=== PATIENT | female | born 1970 | race Caucasian/White ===

== ENCOUNTER 2017-08-12 16:59 | Emergency (ER) | payer MEDICAID, OTHER ==
[~2017-08-12 16:59] MED LIST: CALC500T42 PO; FISHCAP PO; GARL500T PO; LISI-363 PO; LORTA5 PO; MAGN500T4 PO; TAB-TAB PO; VITA100017 PO; Z.0.BCPILL PO; ZINC30TA2 PO
[2017-08-12 17:04] VITALS: BP 151/87; PULSE 91; RESP 18; TEMP 98.7; O2SAT 98
[2017-08-12] MEDS ORDERED: LISI40TA PO (17:20)
[2017-08-12] MEDS ORDERED: PRED10PA PO (17:20)
[2017-08-12] MEDS ORDERED: ZITH250T PO (17:20)
--- NOTE | 2017-08-12 17:36 | PD ---
HPI Chief Complaint: Skin Problem Time Seen by Provider: 17:22 Travel History International Travel<30 days: No Contact w/Intl Traveler<30days: No Traveled to known affect area: No History of Present Illness HPI The patient was seen and examined in the presence of the nurse. Patient complains of right arm redness and swelling and pain. Duration is 4 days. Severity is moderate. No alleviating factors. No exacerbating factors. She denies fever. No history of DVT. She recently completed a Z-Lexx for pharyngitis. She has no history of IV drug abuse. No other areas of swelling or redness. PFSH Past Medical History Cancer: No Cardiovascular Problems: Yes (PALPITATIONS) Diminished Hearing: No Endocrine: No Genitourinary: No Hepatitis: No Hiatal Hernia: No Hypertension: Yes Immune Disorder: No Neurologic: No Psychiatric: Yes (ANXIETY) Immunizations Current: No (UNKN) Tetanus Vaccination: > 5 Years Influenza Vaccination: No ?: Not Menopausal: No : 2 Para: 2 Past Surgical History Abdominal Surgery: No Body Medical Devices: BREAST IMPLANTS Section: Yes (X2) Ear Surgery: No Endocrine Surgery: No Eye Surgery: No Genitourinary Surgery: No Gynecologic Surgery: Yes (2 C SECTIONS) Hysterectomy: Yes Oral Surgery: No Thoracic Surgery: Yes (BREAST IMPLANTS) Other Surgery: Yes Social History Alcohol Use: Yes (3-4/WEEK) Tobacco Use: Yes (3-4 cigs per day) Substance Use: No Allergies-Medications (Allergen,Severity, Reaction): Coded Allergies: No Known Allergies (Verified , 06/10/15) Reported Meds & Prescriptions Reported Meds & Active Scripts Active Reported Prednisone (21) 10 mg tab Dose Pack (Prednisone) 10 Mg Pack 10 Mg PO DIRECTED Zithromax (Azithromycin) 250 Mg Tab 250 Mg PO DAILY Lisinopril 40 Mg Tab 40 Mg PO DAILY Review of Systems General / Constitutional: No: Fever Eyes: No: Visual changes HENT: No: Headaches Cardiovascular: No: Chest Pain or Discomfort Respiratory: No: Shortness of Breath Gastrointestinal: No: Abdominal Pain Genitourinary: No: Dysuria Musculoskeletal: Positive: Edema, Pain Skin: No Rash Neurologic: No: Weakness Psychiatric: No: Depression Endocrine: No: Polydipsia Hematologic/Lymphatic: No: Easy Bruising Physical Exam Narrative GENERAL: Well-nourished, well-developed patient in no apparent distress. SKIN: Focused skin assessment reveals no rash and nodules. Skin is Warm and dry. HEAD: Atraumatic. Normocephalic. EYES: Pupils equal and round. No scleral icterus. No injection or drainage. ENT: No nasal bleeding or discharge. Mucous membranes pink and moist. Throat looks normal NECK: Trachea midline. No JVD. Palpable cervical lymph node on the right. CARDIOVASCULAR: Regular rate and rhythm. No murmur appreciated. RESPIRATORY: No accessory muscle use. Clear to auscultation. Breath sounds equal bilaterally. GASTROINTESTINAL: Abdomen soft, non-tender, nondistended. Hepatic and splenic margins not palpable. MUSCULOSKELETAL: No obvious deformities. No clubbing. No cyanosis. There is an area of erythema and tenderness and warmth with a bit of edema in the right bicep area. Good range of motion of shoulder and elbow. No septic joint. Neurovascularly intact. NEUROLOGICAL: Awake and alert. No obvious cranial nerve deficits. Motor grossly within normal limits. Normal speech. PSYCHIATRIC: Appropriate mood and affect; insight and judgment normal. Data Data Last Documented VS Vital Signs Date Time Temp Pulse Resp B/P (MAP) Pulse Ox O2 Delivery O2 Flow Rate FiO2 08/12/17 19:27 87 20 118/90 (99) 98 08/12/17 17:04 98.7 Orders Orders Iv Access Insert/Monitor (08/12/17 17:32) Complete Blood Count With Diff (08/12/17 17:32) Basic Metabolic Panel (Bmp) (08/12/17 17:32) Prothrombin Time / Inr (Pt) (08/12/17 17:32) Act Partial Throm Time (Ptt) (08/12/17 17:32) Us Arm Venous Doppler (08/12/17 ) Vancomycin Inj (Vancomycin Inj) (08/12/17 20:00) Labs Laboratory Tests Test 08/12/17 17:45 White Blood Count 15.5 TH/MM3 Red Blood Count 4.06 MIL/MM3 Hemoglobin 13.1 GM/DL Hematocrit 38.6 % Mean Corpuscular Volume 95.0 FL Mean Corpuscular Hemoglobin 32.3 PG Mean Corpuscular Hemoglobin Concent 34.0 % Red Cell Distribution Width 12.6 % Platelet Count 231 TH/MM3 Mean Platelet Volume 7.9 FL Neutrophils (%) (Auto) 73.7 % Lymphocytes (%) (Auto) 12.6 % Monocytes (%) (Auto) 10.8 % Eosinophils (%) (Auto) 0.7 % Basophils (%) (Auto) 2.2 % Neutrophils # (Auto) 11.4 TH/MM3 Lymphocytes # (Auto) 2.0 TH/MM3 Monocytes # (Auto) 1.7 TH/MM3 Eosinophils # (Auto) 0.1 TH/MM3 Basophils # (Auto) 0.3 TH/MM3 CBC Comment AUTO DIFF Differential Comment AUTO DIFF CONFIRMED Platelet Estimate NORMAL Platelet Morphology Comment NORMAL Red Cell Morphology Comment NORMAL Prothrombin Time 10.0 SEC Prothromb Time International Ratio 1.0 RATIO Activated Partial Thromboplast Time 26.8 SEC Blood Urea Nitrogen 10 MG/DL Creatinine 0.67 MG/DL Random Glucose 133 MG/DL Calcium Level 9.2 MG/DL Sodium Level 136 MEQ/L Potassium Level 3.2 MEQ/L Chloride Level 101 MEQ/L Carbon Dioxide Level 27.4 MEQ/L Anion Gap 8 MEQ/L Estimat Glomerular Filtration Rate 94 ML/MIN [facility] Medical Decision Making Medical Screen Exam Complete: Yes Emergency Medical Condition: Yes Medical Record Reviewed: Yes Differential Diagnosis Cellulitis, abscess, DVT Narrative Course I have reviewed the patient's electronic medical record. IV placed and labs sent Ultrasound of the right arm is negative for DVT CBC shows leukocytosis of 15,000 Metabolic studies and coag studies are normal Gave her 1 g IV vancomycin 10 days of Bactrim for her right arm cellulitis Diagnosis Primary Impression: Cellulitis of right upper arm Additional Instructions: The patient was advised to follow up with their physician and return if they worsen. Med/Other Pt SpecificInfo: Prescription(s) given Scripts Sulfamethoxazole-Trimethoprim (Bactrim DS) 800-160 Mg Tab 1 TAB PO BID for Infection, #20 TAB 0 Refills Prov: Ward Mujica MD 08/12/17 Disposition: 01 DISCHARGE HOME Condition: Stable Ward Mujica MD August 12, 2017 17:36
[2017-08-12 18:01] LABS: AUTOMATED NEUTROPHIL # 11.4 TH/MM3 (1.8-7.7); BASOPHIL # 0.3 TH/MM3 (0-0.2); BASOPHIL % 2.2 % (0.0-2.0); EOSINOPHIL # 0.1 TH/MM3 (0-0.4); EOSINOPHIL % 0.7 % (0.0-4.0); HEMATOCRIT 38.6 % (35.0-46.0); HEMOGLOBIN 13.1 GM/DL (11.6-15.3); LYMPH % 12.6 % (9.0-44.0); MEAN CORPUSCULAR HEMOGLOBIN 32.3 PG (27.0-34.0); MEAN PLATELET VOLUME 7.9 FL (7.0-11.0); MONO % 10.8 % (0.0-8.0); MONOCYTE # 1.7 TH/MM3 (0-0.9); NEUT % 73.7 % (16.0-70.0); PLATELET COUNT 231 TH/MM3 (150-450); RED BLOOD COUNT 4.06 MIL/MM3 (4.00-5.30); RED CELL DISTRIBUTION WIDTH 12.6 % (11.6-17.2); WHITE BLOOD COUNT 15.5 TH/MM3 (4.0-11.0)
[2017-08-12 18:11] LABS: CALCIUM 9.2 MG/DL (8.5-10.1)
[2017-08-12 18:12] LABS: BICARBONATE 27.4 MEQ/L (21.0-32.0)
[2017-08-12 18:15] LABS: CREATININE 0.67 MG/DL (0.50-1.00)
[2017-08-12 19:27] VITALS: BP 118/90; PULSE 87; RESP 20; O2SAT 98
--- NOTE | 2017-08-12 19:32 | RADRPT ---
EXAM DATE/TIME: 08/12/2017 19:04 [place] COMPARISON: No previous studies available for comparison. INDICATIONS : Right arm redness and swelling. MEDICAL HISTORY : None. SURGICAL HISTORY : None. ENCOUNTER: Initial ACUITY: 1 day PAIN SCORE: 7/10 LOCATION: Right arm. FINDINGS: There is spontaneous flow documented in the brachial, basilic, cephalic, axillary, and subclavian vei ns. The vessels are compressible and augmentation response is documented. No filling defects are se en. The flow is phasic with respiration. Direction of flow in the jugular vein is caudal. CONCLUSION: No evidence of deep venous thrombosis within the right upper extremity. Feng Parra MD on August 12, 2017 at 19:30 Board Certified Radiologist. This report was verified electronically.
[2017-08-12] MEDS ORDERED: BACT800T5 PO ×2 (19:57→22:35)
[2017-08-12] MEDS ORDERED: VANCOMYCIN INJ 1,000 MG in SODIUM CHLOR 0.9% 250 ML INJ 250 ML IV ONE (20:00)
[2017-08-12 21:30] VITALS: BP 149/72; PULSE 84; RESP 20
[2017-08-12 22:41] VITALS: BP 153/95
== END 2017-08-12 22:49 | disposition home or self-care (01) ==
LOC: PHED 16:59
DX: L03.113 Cellulitis of right upper limb (principal); D72.829 Elevated white blood cell count, unspecified; I10 Essential (primary) hypertension; F41.9 Anxiety disorder, unspecified; F17.210 Nicotine dependence, cigarettes, uncomplicated; Z79.899 Other long term (current) drug therapy
CPT/HCPCS: 80048; 85025; 85610; 85730; 93971; 96374; 99284; J3370; J7050

== ENCOUNTER 2017-08-31 13:17 | Day surgery (SDC) | payer OTHER ==
[~2017-08-31 13:17] MED LIST changes: +BACT800T5 PO; -CALC500T42 PO; -FISHCAP PO; -GARL500T PO; -LISI-363 PO; +LISI40TA PO; -LORTA5 PO; -MAGN500T4 PO; +PRED10PA PO; -TAB-TAB PO; -VITA100017 PO; -Z.0.BCPILL PO; -ZINC30TA2 PO; +ZITH250T PO
== END 2017-08-31 14:21 | disposition home or self-care (01) ==
LOC: HRAD 13:17 → HRIP 13:19 → HRAD 14:21
PROVIDERS: ATTEND Internal Medicine Critical Care Medicine
DX: R59.0 Localized enlarged lymph nodes (principal); Z53.9 Procedure and treatment not carried out, unspecified reason

== ENCOUNTER 2017-10-15 15:28 | Observation (INO) ==
[2017-10-15] MEDS ORDERED: Pantoprazole Inj 40 MG Vial IV.PUSH ONE (21:11)
[2017-10-15] MEDS ORDERED: Sod Chloride 0.9% Inj 1,000 ML IV.SIG ONE (21:11)
--- NOTE | 2017-10-15 21:11 | ED ---
HPI General Chief complaint: Nausea/Vomiting/Diarrhea Stated complaint: Vomiting blood Time Seen by Provider: 10/15/17 21:06 History of Present Illness HPI Narrative: 46-year-old female presents to the emergency department complaint of nausea and vomiting for the past couple of days. Patient states she is started with right-sided upper abdominal pain and now has epigastric pain. Also complains of chest pain. Patient states he had multiple episodes of vomiting. Patient denies any gross bloody emesis. Patient states that her emesis does look dark but does not describe it as coffee-ground. Patient states stools are not normal but denies any sheryl blood or melanotic stool or tarry stool. Patient does take frequent ibuprofen for complaint of arthritis of her knees. Patient has had history of peptic ulcer disease in the past and has had upper endoscopy but not recently. Patient denies known history of pancreatitis cholecystitis gastritis hepatitis diverticulitis or inflammatory bowel disease. Patient occasionally smokes and does reportedly occasionally drinks alcohol but reportedly does not drink alcohol daily. Last alcohol consumption was reportedly 2 days ago. Patient denies any fever chills. No reported dietary indiscretion well water ingestion or foreign travel. Patient states that approximately a month ago she completed multiple courses of antibiotic for a spider bite infection of the arm that was managed as an outpatient with outpatient IV antibiotics and her primary care provider has not been on antibiotic for a month. Patient denies any mucoid or explosive diarrhea or lower abdominal pain. Patient is unable to identify exacerbating or alleviating factors. Patient does have history of hypertension previous partial hysterectomy and . Related Data Home Medications Medication Instructions Recorded Confirmed lisinopril 20 mg PO DAILY 10/15/17 10/15/17 Allergies Allergy/AdvReac Type Severity Reaction Status Date / Time No Known Allergies Allergy Unverified 10/15/17 21:10 Review of Systems Except as stated in HPI: all other systems reviewed are negative [facility] Medical History Medical History delivery delivered (Acute) H/O endoscopy (Acute) High blood pressure (Acute) Ulcer (Acute) Uterine fibroid (Acute) Surgical History Surgical History History of 2 sections (Acute) History of partial hysterectomy (Acute) Social History Social History Substance History: No History of Abuse Second Hand Smoke Exposure: Yes Smoking Status: Current some day smoker Tobacco Type: Cigarettes How Often Do You Have a Drink Containing Alcohol: 4 or more times a week Recent Travel in [facility] within the Last 8 Weeks: No Recent Out of Country Travel within the Last 8 Weeks: No Exam Narrative Exam Narrative: GENERAL: Well-nourished, well-developed patient. No acute distress no respiratory distress appears mildly tremulous with sinus tachycardia by phototypesetting equipment monitor at bedside heart rate 108-114. SKIN: Focused skin assessment warm/dry. HEAD: Normocephalic. EYES: No scleral icterus. No injection or drainage. NECK: Supple, trachea midline. No JVD or lymphadenopathy. CARDIOVASCULAR: Increased regular rate and rhythm without murmurs, gallops, or rubs. RESPIRATORY: Breath sounds equal bilaterally. No accessory muscle use. GASTROINTESTINAL: Abdomen soft, reproducible epigastric tenderness without guarding or rebound, nondistended. MUSCULOSKELETAL: No cyanosis, or edema. BACK: Nontender without obvious deformity. No CVA tenderness. Course Reevaluation(s) Reevaluation #1: Patient some clinically better vital signs after IV fluids reglan and Ativan 1 mg IV; patient's total white cell count grossly normal range chemistries remarkable for elevated anion gap and elevated LFTs; urinalysis unremarkable; CT abdomen pelvis shows no acute intra-abdominal or pelvic abnormality does show some fatty liver disease and ovarian cyst. Patient remains very tremulous will admit for intractable vomiting and early alcohol withdrawal Time: 23:59 Initial Documented Vital Signs Temperature 98.0 F 10/15/17 16:13 Pulse Rate 110 H 10/15/17 16:13 Respiratory Rate 20 10/15/17 16:13 Blood Pressure 129/82 10/15/17 16:13 Pulse Oximetry 100 10/15/17 16:13 Last Documented Vital Signs Temperature 98.2 F 10/16/17 15:47 Pulse Rate 72 10/16/17 15:47 Respiratory Rate 18 10/16/17 15:47 Blood Pressure 114/78 10/16/17 15:47 Pulse Oximetry 98 10/16/17 15:47 Medical Decision Making MDM Narrative Medical decision making narrative: 46-year-old female presents to the emergency department for 2 days of multiple episodes of nausea with vomiting with recent increased NSAID use and possible coffee-ground emesis without hematochezia or melena. Mild tachycardia appears mildly tremulous but denies routine alcohol use. IV access obtained patient placed on phototypesetting equipment monitor with continuous pulse oximetry IV fluids administered along with Zofran. Patient with good response to IV fluids however still remains quite tremulous and comments that her tremor seems to be worsening with further detailing of her history patient fell he admits that she has been going through a divorce and since going to divorce her alcohol consumption has increased to almost daily use and abruptly discontinued alcohol 2 days ago which fits with her presentation clinically appear to be in alcohol withdrawal now historically in alcohol withdrawal. Patient reports symptoms however did not start until after vomiting episode which made her stop drinking alcohol abruptly. Patient given Ativan 1 mg IV. Patient will be admitted for intractable vomiting with concern for subsequent early alcohol withdrawal. Medical Records Medical records reviewed: Yes I reviewed the patient's medical records. Lab Data Result diagrams: 10/16/17 17:45 10/15/17 21:20 Lab Results 10/15/17 10/15/17 10/15/17 Range/Units 21:20 21:20 21:20 WBC 4.0 (4.0-11.0) th/mm3 RBC 3.91 L (4.00-5.30) mil/mm3 Hgb 13.1 (11.6-15.3) gm/dL Hct 37.9 (35.0-46.0) % MCV 97.0 (80.0-100.0) fL MCH 33.6 (27.0-34.0) pg MCHC 34.6 (32.0-36.0) % RDW 15.8 (11.6-17.2) % Plt Count 163 (150-450) th/mm3 MPV 8.5 (7.0-11.0) fL Neut % (Auto) 74.5 H (16.0-70.0) % Lymph % (Auto) 13.1 (9.0-44.0) % [place] % (Auto) 10.8 H (0.0-8.0) % Eos % (Auto) 0.2 (0.0-4.0) % Baso % (Auto) 1.4 (0.0-2.0) % Neut # (Auto) 3.0 (1.8-7.7) th/mm3 Lymph # (Auto) 0.5 L (1.0-4.8) th/mm3 Hodgeman # (Auto) 0.4 (0.0-0.9) th/mm3 Eos # (Auto) 0.0 (0.0-0.4) th/mm3 Baso # (Auto) 0.1 (0.0-0.2) th/mm3 WBC Differential . Differential Comment Auto diff final Sodium 131 L (136-145) meq/L Potassium 3.7 (3.5-5.1) meq/L Chloride 93 L (98-107) meq/L Carbon Dioxide 21.9 (21.0-32.0) meq/L Anion Gap 16 H (5-15) meq/L BUN 24 H (7-18) mg/dL Creatinine 0.66 (0.50-1.00) mg/dL Estimated GFR Greater than 89 (>89) mL/min POC Glucose (68-110) mg/dl Random Glucose 122 H (74-106) mg/dL Calcium 9.9 (8.5-10.1) mg/dL Magnesium 2.1 (1.5-2.5) mg/dL Total Bilirubin 1.2 H (0.2-1.0) mg/dL AST 258 H (15-37) U/L ALT 207 H (10-53) U/L Alkaline Phosphatase 93 (45-117) U/L Troponin I Less than 0.02 L (0.02-0.05) ng/mL Total Protein 8.5 H (6.4-8.2) g/dL Albumin 4.5 (3.4-5.0) g/dL Lipase 356 (73-393) U/L Tumor Marker AFP (0.5-8.0) ng/mL Urine Color (Yellw/Straw) Urine Clarity (Clear) Urine pH (5.0-8.5) Ur Specific [place] (1.002-1.035) Urine Protein (Neg-Trace) mg/dL Urine Glucose (UA) (Negative) mg/dL Urine Ketones (Negative) mg/dL Urine Occult Blood (Negative) Urine Nitrate (Negative) Urine Bilirubin (Negative) Urine Urobilinogen (Less than 2) mg/dL Ur Leukocyte Esterase (Negative) Urine RBC (0-3) /hpf Urine WBC (0-5) /hpf Amorphous Sediment (None) /hpf Urine Bacteria (None) /hpf Urine Mucus (Occasional) /lpf Micro UA Comment Urine Culture Comments Serum Alcohol (0-5) mg/dL 07/09/18 07/10/18 07/10/18 Range/Units 22:45 00:25 00:42 WBC (4.0-11.0) th/mm3 RBC (4.00-5.30) mil/mm3 Hgb (11.6-15.3) gm/dL Hct (35.0-46.0) % MCV (80.0-100.0) fL MCH (27.0-34.0) pg MCHC (32.0-36.0) % RDW (11.6-17.2) % Plt Count (150-450) th/mm3 MPV (7.0-11.0) fL Neut % (Auto) (16.0-70.0) % Lymph % (Auto) (9.0-44.0) % Hodgeman % (Auto) (0.0-8.0) % Eos % (Auto) (0.0-4.0) % Baso % (Auto) (0.0-2.0) % Neut # (Auto) (1.8-7.7) th/mm3 Lymph # (Auto) (1.0-4.8) th/mm3 Hod[place]eman # (Auto) (0.0-0.9) th/mm3 Eos # (Auto) (0.0-0.4) th/mm3 Baso # (Auto) (0.0-0.2) th/mm3 WBC Differential Differential Comment Sodium (136-145) meq/L Potassium (3.5-5.1) meq/L Chloride (98-107) meq/L Carbon Dioxide (21.0-32.0) meq/L Anion Gap (5-15) meq/L BUN (7-18) mg/dL Creatinine (0.50-1.00) mg/dL Estimated GFR (>89) mL/min POC Glucose 81 (68-110) mg/dl Random Glucose (74-106) mg/dL Calcium (8.5-10.1) mg/dL Magnesium (1.5-2.5) mg/dL Total Bilirubin (0.2-1.0) mg/dL AST (15-37) U/L ALT (10-53) U/L Alkaline Phosphatase (45-117) U/L Troponin I (0.02-0.05) ng/mL Total Protein (6.4-8.2) g/dL Albumin (3.4-5.0) g/dL Lipase (73-393) U/L Tumor Marker AFP (0.5-8.0) ng/mL Urine Color Yellow (Yellw/Straw) Urine Clarity Hazy H (Clear) Urine pH 8.0 (5.0-8.5) Ur Specific [place] 1.010 (1.002-1.035) Urine Protein Negative (Neg-Trace) mg/dL Urine Glucose (UA) Negative (Negative) mg/dL Urine Ketones 80 or greater (Negative) mg/dL Urine Occult Blood Negative (Negative) Urine Nitrate Negative (Negative) Urine Bilirubin Negative (Negative) Urine Urobilinogen Less than 2 (Less than 2) mg/dL Ur Leukocyte Esterase Negative (Negative) Urine RBC 1 (0-3) /hpf Urine WBC 4 (0-5) /hpf Amorphous Sediment Rare H (None) /hpf Urine Bacteria Rare H (None) /hpf Urine Mucus Few H (Occasional) /lpf Micro UA Comment Culture not ind Urine Culture Comments Culture not ind Serum Alcohol Less than 3 (0-5) mg/dL 10/16/17 10/16/17 10/16/17 Range/Units 05:40 17:45 17:45 WBC (4.0-11.0) th/mm3 RBC (4.00-5.30) mil/mm3 Hgb 12.4 12.8 (11.6-15.3) gm/dL Hct 36.3 36.4 (35.0-46.0) % MCV (80.0-100.0) fL MCH (27.0-34.0) pg MCHC (32.0-36.0) % RDW (11.6-17.2) % Plt Count (150-450) th/mm3 MPV (7.0-11.0) fL Neut % (Auto) (16.0-70.0) % Lymph % (Auto) (9.0-44.0) % Hodgeman % (Auto) (0.0-8.0) % Eos % (Auto) (0.0-4.0) % Baso % (Auto) (0.0-2.0) % Neut # (Auto) (1.8-7.7) th/mm3 Lymph # (Auto) (1.0-4.8) th/mm3 [place]geman # (Auto) (0.0-0.9) th/mm3 Eos # (Auto) (0.0-0.4) th/mm3 Baso # (Auto) (0.0-0.2) th/mm3 WBC Differential Differential Comment Sodium (136-145) meq/L Potassium (3.5-5.1) meq/L Chloride (98-107) meq/L Carbon Dioxide (21.0-32.0) meq/L Anion Gap (5-15) meq/L BUN (7-18) mg/dL Creatinine (0.50-1.00) mg/dL Estimated GFR (>89) mL/min POC Glucose (68-110) mg/dl Random Glucose (74-106) mg/dL Calcium (8.5-10.1) mg/dL Magnesium (1.5-2.5) mg/dL Total Bilirubin (0.2-1.0) mg/dL AST (15-37) U/L ALT (10-53) U/L Alkaline Phosphatase (45-117) U/L Troponin I (0.02-0.05) ng/mL Total Protein (6.4-8.2) g/dL Albumin (3.4-5.0) g/dL Lipase (73-393) U/L Tumor Marker AFP 3.3 (0.5-8.0) ng/mL Urine Color (Yellw/Straw) Urine Clarity (Clear) Urine pH (5.0-8.5) Ur Specific [place] (1.002-1.035) Urine Protein (Neg-Trace) mg/dL Urine Glucose (UA) (Negative) mg/dL Urine Ketones (Negative) mg/dL Urine Occult Blood (Negative) Urine Nitrate (Negative) Urine Bilirubin (Negative) Urine Urobilinogen (Less than 2) mg/dL Ur Leukocyte Esterase (Negative) Urine RBC (0-3) /hpf Urine WBC (0-5) /hpf Amorphous Sediment (None) /hpf Urine Bacteria (None) /hpf Urine Mucus (Occasional) /lpf Micro UA Comment Urine Culture Comments Serum Alcohol (0-5) mg/dL Imaging Data Radiologist's impression: ITS Impressions Abdomen/Pelvis CT 10/15/17 21:11 CONCLUSION: 1. No acute CT abnormality in the abdomen or pelvis. 2. Normal appendix. 3. Prominent hepatic steatosis. 4. 1.8 cm left adnexal cystic lesion likely reflecting an ovarian cyst. 5. Small hiatal hernia. Chest X-Ray 10/15/17 21:11 CONCLUSION: No acute cardiopulmonary process. Discharge Plan Discharge Disposition Patient Disposition: 30 Still Patient Discharge Details Diagnosis: Vomiting, Alcohol withdrawal, Alcoholic hepatitis Physicians Team ED Provider: Orquidea Ferguson Primary Care Provider: UNKNOWN, Attending Provider: Bartolo Basurto Other Providers: Anderson Boyce Status ED Status: Left Department Discharge Information Discharge Date/Time: 10/16/17 14:25
[2017-10-15 21:58] LABS: Baso # (Auto) 0.1 th/mm3 (0.0-0.2); Baso % (Auto) 1.4 % (0.0-2.0); Eos % (Auto) 0.2 % (0.0-4.0); Hematocrit 37.9 % (35.0-46.0); Hemoglobin 13.1 gm/dL (11.6-15.3); Lymph # (Auto) 0.5 th/mm3 (1.0-4.8); Lymph % (Auto) 13.1 % (9.0-44.0); Mean Corpuscular HGB Conc 34.6 % (32.0-36.0); Mean Corpuscular Hemoglobin 33.6 pg (27.0-34.0); Mean Platelet Volume 8.5 fL (7.0-11.0); Mono # (Auto) 0.4 th/mm3 (0.0-0.9); Mono % (Auto) 10.8 % (0.0-8.0); Neut % (Auto) 74.5 % (16.0-70.0); Platelet Count 163 th/mm3 (150-450); Red Blood Count 3.91 mil/mm3 (4.00-5.30); Red Cell Distribution Width 15.8 % (11.6-17.2)
[2017-10-15 22:11] LABS: Albumin 4.5 g/dL (3.4-5.0); Anion Gap 16 meq/L (5-15); Aspartate Aminotransferase 258 U/L (15-37); Blood Urea Nitrogen 24 mg/dL (7-18); Calcium 9.9 mg/dL (8.5-10.1); Carbon Dioxide 21.9 meq/L (21.0-32.0); Chloride 93 meq/L (98-107); Glomerular Filtration Rate Greater Than 89 mL/min (>89); Glucose,Random 122 mg/dL (74-106); Lipase 356 U/L (73-393); Potassium 3.7 meq/L (3.5-5.1); Sodium 131 meq/L (136-145)
[2017-10-15 22:13] LABS: Alanine Aminotransferase 207 U/L (10-53)
[2017-10-15 22:16] LABS: Alkaline Phosphatase 93 U/L (45-117); Total Protein 8.5 g/dL (6.4-8.2)
[2017-10-15] MEDS ORDERED: Sodium Chlor 0.9% Inj 500 ML IV.SIG ONE (22:23)
--- NOTE | 2017-10-15 22:33 | XR ---
EXAM DATE: 10/15/2017 9:28 PM EDT AGE/SEX: 46 years / Female INDICATIONS: Vomiting for the past few days. Started vomiting up blood today. Right sided abdominal pain also. CLINICAL DATA: This is the patient's initial encounter. Patient reports that signs and symptoms have been present for 3 days and indicates a pain score of 10/10. MEDICAL/SURGICAL HISTORY: Hypertension. None. COMPARISON: No prior exams available for comparison. FINDINGS: A single AP view of the chest demonstrates the lungs to be symmetrically aerated without evidence of mass, infiltrate or effusion. The cardiomediastinal contours are unremarkable. Osseous structures a re intact. CONCLUSION: No acute cardiopulmonary process. Electronically signed by: Anurag Penn MD 10/15/2017 10:31 PM EDT
[2017-10-15 23:23] LABS: Amorphous Sediment,Urine Rare /hpf; Bacteria,Urine Rare /hpf; Bilirubin,Urine Negative (Negative); Clarity,Urine Hazy (Clear); Color,Urine Yellow (Yellw/Straw); Glucose,Urine (UA) Negative (Negative); Leukocyte Esterase,Urine Negative (Negative); Mucus,Urine Few /lpf (Occasional); Nitrite,Urine Negative (Negative)
--- NOTE | 2017-10-15 23:24 | CT ---
EXAM DATE: 10/15/2017 11:05 PM EDT AGE/SEX: 46 years / Female INDICATIONS: Right side abdominal pain with nausea. CLINICAL DATA: This is the patient's initial encounter. Patient reports that signs and symptoms have been present for 1 day and indicates a pain score of 8/10. MEDICAL/SURGICAL HISTORY: Ulcers. Hypertension. section. Hysterectomy. ORAL CONTRAST: No oral contrast ingested. RADIATION DOSE: 6.64 CTDI (mGy) COMPARISON: POI, US TRANSVAGINAL, 03/23/2015. . TECHNIQUE: Multiple contiguous axial images were obtained through the abdomen and pelvis following b olus infusion of 100 ml Omnipaque 350 (iohexol) nonionic water-soluble contrast as a single exam do se. No oral contrast ingested. Using automated exposure control and adjustment of the mA and/or kV a ccording to patient size, radiation dose was kept as low as reasonably achievable to obtain optimal d iagnostic quality images. DICOM format image data is available electronically for review and compari son. FINDINGS: LOWER LUNGS: The visualized lower lungs are clear. LIVER: Prominently decreased diffuse hepatic attenuation with mild sparing near the falciform ligame nt. No focal mass or intrahepatic ductal dilatation. No radiopaque gallstones. SPLEEN: Homogeneous density without enlargement. PANCREAS: Unremarkable without mass or calcification. KIDNEYS: Small subcentimeter bilateral hypodense cystic lesions which are too small to fully charact erize. Kidneys otherwise symmetrical in size without radiopaque renal calculi or hydronephrosis. ADRENAL GLANDS: Unremarkable. AORTA: Esther-aneurysmal. BOWEL/MESENTERY: Appendix is visualized and normal in appearance. Very small hiatal hernia. Bowel is otherwise unremarkable without evidence for obstruction. No free fluid or drainable fluid collection s. ABDOMINAL WALL: Intact. RETROPERITONEUM: No evidence of adenopathy in the retrocrural, para-aortic, or deep pelvic regions. BLADDER: Contours are smooth. REPRODUCTIVE: No abnormal masses or calcifications seen. 1.8 cm left adnexal cystic lesion likely ov jeremy in etiology. BONY STRUCTURES: Unremarkable. CONCLUSION: 1. No acute CT abnormality in the abdomen or pelvis. 2. Normal appendix. 3. Prominent hepatic steatosis. 4. 1.8 cm left adnexal cystic lesion likely reflecting an ovarian cyst. 5. Small hiatal hernia. Electronically signed by: Marty Vera MD 10/15/2017 11:23 PM EDT
[2017-10-16] MEDS ORDERED: Thiamine Inj 100 MG in Sodium Chlor 0.9% Inj 100 ML IV.SIG ONE ×2
[2017-10-16] MEDS ORDERED: Haloperidol Inj 5 MG/ML Ampul IV.PUSH PRN (01:59)
[2017-10-16] MEDS ORDERED: LORazepam 1 MG Tablet PO PRN (01:59)
[2017-10-16] MEDS: Sod Chloride 0.9% Inj 1,000 ML IV.CONT SCH ×2 (03:27→17:32)
--- NOTE | 2017-10-16 04:20 | P.HP ---
History of Present Illness Service: [facility] Primary Care Physician: UNKNOWN Chief Complaint: Hematemesis History of Present Illness: 46-year-old female with a past medical history significant for anxiety and hypertension presents the emergency department for the evaluation of hematemesis. The patient reports that she has been nauseated and throwing up since this morning. She reports that she had a significant amount of blood in her emesis. She also reports drinking more alcohol than usual because she is undergoing a divorce and has been more anxious than normal. She reports dizziness, tremors and right upper quadrant pain. She denies any fever/chills. No chest pain or shortness of breath. No diarrhea. No lateralizing signs/ symptoms. Inpatient Certification: I certify that the inpatient services were ordered in accordance with Medicare regulations governing the order. This includes certification that hospital inpatient services are reasonable and necessary and in the case of services not specified as inpatient-only under 42 CFR 419.22(n), that they are appropriately provided as inpatient services in accordance to with the 2-midnight benchmark under 43 CFR 412.3(e) Review of Systems All other systems reviewed negative except as stated in HPI PMFSH - History History Provided By: Patient - Medical History Medical History: Medical History (Last Updated 10/15/17 @ 21:04 by Joyce Olvera RN) delivery delivered H/O endoscopy High blood pressure Ulcer Uterine fibroid - Surgical History Surgical History: Surgical History (Last Updated 10/15/17 @ 21:04 by Joyce Olvera RN) History of 2 sections History of partial hysterectomy - Tobacco History Second Hand Smoke Exposure: Yes Tobacco Use In Past 30 Days: Yes Smoking Status: Current some day smoker Tobacco Type: Cigarettes - Alcohol History How Often Do You Have a Drink Containing Alcohol: 4 or more times a week - Substance Use History Substance History: No History of Abuse - Travel History Recent Travel in the [place] Within the Last 8 Weeks: No Recent Travel Out of the Country Within the Last 8 Weeks: No - Immunization History Tetanus Immunization: Unsure Hx Influenza Vaccine This Season: No Medications and Allergies Active Medications: Active Medications Flumazenil (Romazecon Inj) 0.2 mg IV.PUSH Q1M PRN PRN Reason: OVERSEDATION Folic Acid (Folic Acid) 1 mg PO DAILY [place] Stop: 10/21/17 08:59 Haloperidol Lactate (Haldol Inj) 1 mg IV.PUSH Q15M PRN PRN Reason: for severe agitation Sodium Chloride (Ns Inj) 1,000 mls @ 100 mls/hr IV.CONT .Q10H [facility] Last Admin: 10/16/17 03:27 Dose: 100 mls/hr Lorazepam (Ativan) 1 mg PO Q4H PRN PRN Reason: for CIWA 8-10 Lorazepam (Ativan) 2 mg PO Q2H PRN PRN Reason: for CIWA 11-14 Lorazepam (Ativan Inj) 2 mg IV.PUSH Q2H PRN PRN Reason: for CIWA 11-14 Lorazepam (Ativan Inj) 2 mg IV.PUSH Q1H PRN PRN Reason: for CIWA 15-20 Lorazepam (Ativan Inj) 1 mg IV.PUSH Q4H PRN PRN Reason: for CIWA 8-10 Lorazepam (Ativan Inj) 2 mg IV.PUSH Q15M PRN PRN Reason: for CIWA > 20 Multivitamins/Minerals (Theragran-M) 1 tab PO DAILY [facility] Stop: 10/21/17 08:59 Ondansetron HCl (Zofran Inj) 4 mg IV.PUSH Q6H PRN PRN Reason: NAUSEA OR VOMITING Pantoprazole Sodium (Protonix Inj) 40 mg IV.PUSH BID [place] Sodium Chloride (Ns Flush) 2 ml IV.FLUSH PRN PRN PRN Reason: FLUSH AFTER USING IV ACCESS Sodium Chloride (Ns Flush) 2 ml IV.FLUSH BID [place] Sodium Chloride (Ns Flush) 2 ml IV.FLUSH PRN PRN PRN Reason: FLUSH AFTER USING IV ACCESS Thiamine HCl (Vitamin B1) 100 mg PO DAILY [facility] Allergies Allergy/AdvReac Type Severity Reaction Status Date / Time No Known Allergies Allergy Unverified 10/15/17 21:10 Home Medications Medication Instructions Recorded Confirmed Type lisinopril 20 mg PO DAILY 10/15/17 10/15/17 History Exam Vital signs: Vital Signs 10/15/17 16:13 10/15/17 20:59 10/15/17 22:36 Temperature 98.0 F 98.3 F Pulse Rate 110 H 102 H 87 Respiratory Rate 20 16 16 Blood Pressure 129/82 139/80 126/79 Pulse Oximetry 100 98 97 10/15/17 22:39 10/16/17 03:38 10/16/17 03:39 Temperature Pulse Rate 83 84 Respiratory Rate 16 16 Blood Pressure 115/85 115/85 Pulse Oximetry 96 97 98 Intake & Output 10/15/17 10/15/17 10/16/17 06:59 18:59 06:59 Weight 70 kg Narrative: Gen.: No acute distress Head: Normocephalic. Atraumatic. EENT: Pupils equal round and reactive to light. Nose without drainage. Airway intact. Throat without injection. Cardiovascular: Regular rate and rhythm. No murmurs, rubs or gallops. Respiratory: Lungs clear to auscultation bilaterally. No wheezes or rhonchi. Abdomen: Soft, tender to palpation in the right upper quadrant, nondistended. No peritoneal signs. Musculoskeletal: No gross deformities. No edema. Skin: No obvious rashes or erythema. Neuro: Sensory and motor grossly intact. Cranial nerves II through XII grossly intact. Psych: Appropriate mood and affect Results - Labs CBC & Chem 7: 10/15/17 21:20 10/15/17 21:20 Labs: Laboratory Results - last 24 hr 10/15/17 10/15/17 10/15/17 21:20 21:20 21:20 WBC 4.0 RBC 3.91 L Hgb 13.1 Hct 37.9 MCV 97.0 MCH 33.6 MCHC 34.6 RDW 15.8 Plt Count 163 MPV 8.5 Neut % (Auto) 74.5 H Lymph % (Auto) 13.1 [place] % (Auto) 10.8 H Eos % (Auto) 0.2 Baso % (Auto) 1.4 Neut # (Auto) 3.0 Lymph # (Auto) 0.5 L [place] # (Auto) 0.4 Eos # (Auto) 0.0 Baso # (Auto) 0.1 WBC Differential . Differential Comment Auto diff final Sodium 131 L Potassium 3.7 Chloride 93 L Carbon Dioxide 21.9 Anion Gap 16 H BUN 24 H Creatinine 0.66 Estimated GFR Greater than 89 POC Glucose Random Glucose 122 H Calcium 9.9 Magnesium 2.1 Total Bilirubin 1.2 H AST 258 H ALT 207 H Alkaline Phosphatase 93 Troponin I Less than 0.02 L Total Protein 8.5 H Albumin 4.5 Lipase 356 Urine Color Urine Clarity Urine pH Ur Specific [place] Urine Protein Urine Glucose (UA) Urine Ketones Urine Occult Blood Urine Nitrate Urine Bilirubin Urine Urobilinogen Ur Leukocyte Esterase Urine RBC Urine WBC Amorphous Sediment Urine Bacteria Urine Mucus Micro UA Comment Urine Culture Comments Serum Alcohol 10/15/17 10/16/17 10/16/17 22:45 00:25 00:42 WBC RBC Hgb Hct MCV MCH MCHC RDW Plt Count MPV Neut % (Auto) Lymph % (Auto) [place] % (Auto) Eos % (Auto) Baso % (Auto) Neut # (Auto) Lymph # (Auto) [place] # (Auto) Eos # (Auto) Baso # (Auto) WBC Differential Differential Comment Sodium Potassium Chloride Carbon Dioxide Anion Gap BUN Creatinine Estimated GFR POC Glucose 81 Random Glucose Calcium Magnesium Total Bilirubin AST ALT Alkaline Phosphatase Troponin I Total Protein Albumin Lipase Urine Color Yellow Urine Clarity Hazy H Urine pH 8.0 Ur Specific [place] 1.010 Urine Protein Negative Urine Glucose (UA) Negative Urine Ketones 80 or greater Urine Occult Blood Negative Urine Nitrate Negative Urine Bilirubin Negative Urine Urobilinogen Less than 2 Ur Leukocyte Esterase Negative Urine RBC 1 Urine WBC 4 Amorphous Sediment Rare H Urine Bacteria Rare H Urine Mucus Few H Micro UA Comment Culture not ind Urine Culture Comments Culture not ind Serum Alcohol Less than 3 - Imaging Impressions Abdomen/Pelvis CT 10/15/17 21:11 CONCLUSION: 1. No acute CT abnormality in the abdomen or pelvis. 2. Normal appendix. 3. Prominent hepatic steatosis. 4. 1.8 cm left adnexal cystic lesion likely reflecting an ovarian cyst. 5. Small hiatal hernia. Chest X-Ray 10/15/17 21:11 CONCLUSION: No acute cardiopulmonary process. Caprini VTE Risk Assessment Caprini VTE Risk Assessment: No/Low Risk (score <= 1) Caprini Risk Assessment Model: Point Value = 1 Point Value = 2 Point Value = 3 Point Value = 5 Age 41-60 Minor surgery BMI > 25 kg/m2 Swollen legs Varicose veins or History of unexplained or recurrent spontaneous Oral contraceptives or hormone replacement Sepsis (< 1 month) Serious lung disease, including pneumonia (< 1 month) Abnormal pulmonary function Acute myocardial infarction Congestive heart failure (< 1 month) History of inflammatory bowel disease Medical patient at bed rest Age 61-74 Arthroscopic surgery Major open surgery (> 45 min) Laparoscopic surgery (> 45 min) Malignancy Confined to bed (> 72 hours) Immobilizing plaster cast Central venous access Age >= 75 History of VTE Family history of VTE Factor V Leiden Prothrombin [id number] Lupus anticoagulant Anticardiolipin antibodies Elevated serum homocysteine Heparin-induced thrombocytopenia Other congenital or acquired thrombophilia Stroke (< 1 month) Elective arthroplasty Hip, pelvis, or leg fracture Acute spinal cord injury (< 1 month) Prophylaxis Regimen: Total Risk Factor Score Risk Level Prophylaxis Regimen 0-1 Low Early ambulation 2 Moderate Order ONE of the following: *Sequential Compression Device (SCD) *Heparin 5000 units SQ BID 3-4 Higher Order ONE of the following medications: *Heparin 5000 units SQ TID *Enoxaparin/Lovenox 40 mg SQ daily (WT < 150 kg, CrCl > 30 mL/min) *Enoxaparin/Lovenox 30 mg SQ daily (WT < 150 kg, CrCl > 10-29 mL/min) *Enoxaparin/Lovenox 30 mg SQ BID (WT < 150 kg, CrCl > 30 mL/min) AND/OR *Sequential Compression Device (SCD) 5 or more Highest Order ONE of the following medications: *Heparin 5000 units SQ TID (Preferred with Epidurals) *Enoxaparin/Lovenox 40 mg SQ daily (WT < 150 kg, CrCl > 30 mL/min) *Enoxaparin/Lovenox 30 mg SQ daily (WT < 150 kg, CrCl > 10-29 mL/min) *Enoxaparin/Lovenox 30 mg SQ BID (WT < 150 kg, CrCl > 30 mL/min) AND *Sequential Compression Device (SCD) Assessment and Plan - Plan Assessment/plan: 1. Hematemesis/GI bleed Patient reports multiple episodes of hematemesis History of peptic ulcer disease No repeat episodes since her arrival in the emergency department Every 6 hours H&H IV Protonix Gastroenterology consulted, appreciate recommendations 2. ? Alcohol abuse/transaminitis Patient initially reported drinking no more than 2 drinks daily although later stated that she has been drinking more than usual because of her divorce Unclear what patient's actual daily intake is Liver enzymes elevated, suspect secondary to alcohol abuse Monitor [facility] protocol Monitor for signs of withdrawal 3. Hypertension Continue home lisinopril FEN N.p.o. Electrolytes: Monitor and replete as needed NS at 100 cc/hour
[2017-10-16 08:41] LABS: Hematocrit 36.3 % (35.0-46.0); Hemoglobin 12.4 gm/dL (11.6-15.3)
[2017-10-16] MEDS: Pantoprazole Inj 40 MG Vial IV.PUSH SCH ×2 (08:49→21:07)
[2017-10-16] MEDS: Lisinopril 20 MG Tablet PO SCH (08:50)
[2017-10-16] MEDS: Folic Acid 1 MG Tablet PO SCH (08:50)
[2017-10-16] MEDS: Multivitamin/Minerals Therapeutic Tablet PO SCH (08:50)
--- NOTE | 2017-10-16 09:58 | P.CONGI ---
History of Present Illness Consult date: 10/16/17 Consult reason: Hematemesis Chief complaint: Intractable Vomiting History of Present Illness: This is a 46-year-old female who presented to the emergency room on early a.m. with uncontrolled vomiting and hematemesis. Patient states she had 3 different episodes of bright red hematemesis 24 hours ago which was accompanied with dizziness, nausea and vomiting. Patient also notes symptoms of dizziness weakness and minimal food consumption and decreased appetite over the past 2 days. Patient also notes right upper quadrant pain and cramping for the past 3 days and does note some looser stools but no obvious blood for the past 2 days. She also notes leg cramps and increase stressors and anxiety in her life right now. Positive family history with mom and cancer. Patient states previous EGDs but has not had any workup in the past 5 years or more. Patient does note a small amount of tobacco consumption about 3 cigarettes a day and drinks alcohol on frequent occasions 3-4 times a week including wine and liquor according to the admission note patient did admit to more alcohol consumption recently due to her stressors. There is a family member with her for support. Current labs show hemoglobin 12.4, bilirubin 1.2, AST 258, ALT 207. This could be related to alcoholic hepatitis and/or hepatocellular disease. CT scan shows prominent hepatic steatosis. <Harmony Jacome - Last Filed: 10/16/17 10:00> Review of Systems All other systems reviewed negative except as stated in HPI <Harmony Jacome - Last Filed: 10/16/17 10:00> PMFSH - History History Provided By: Patient - Medical History Medical History: Medical History (Last Updated 10/15/17 @ 21:04 by Joyce Olvera RN) delivery delivered H/O endoscopy High blood pressure Ulcer Uterine fibroid - Surgical History Surgical History: Surgical History (Last Updated 10/15/17 @ 21:04 by Joyce Olvera RN) History of 2 sections History of partial hysterectomy - Tobacco History Second Hand Smoke Exposure: Yes Tobacco Use In Past 30 Days: Yes Smoking Status: Current some day smoker Tobacco Type: Cigarettes - Alcohol History How Often Do You Have a Drink Containing Alcohol: 4 or more times a week - Substance Use History Substance History: No History of Abuse - Travel History Recent Travel in the [place] Within the Last 8 Weeks: No Recent Travel Out of the Country Within the Last 8 Weeks: No - Immunization History Tetanus Immunization: Unsure Hx Influenza Vaccine This Season: No <NaaHarmony Hilda - Last Filed: 10/16/17 10:00> - Medical History Medical History: Medical History (Last Updated 10/15/17 @ 21:04 by Joyce Olvera, RN) delivery delivered H/O endoscopy High blood pressure Ulcer Uterine fibroid - Surgical History Surgical History: Surgical History (Last Updated 10/15/17 @ 21:04 by Joyce Olvera, ANGÉLICA) History of 2 sections History of partial hysterectomy <Anderson Boyce - Last Filed: 10/16/17 14:19> Medications and Allergies Active Medications: Active Medications Flumazenil (Romazecon Inj) 0.2 mg IV.PUSH Q1M PRN PRN Reason: OVERSEDATION Folic Acid (Folic Acid) 1 mg PO DAILY [facility] Stop: 10/21/17 08:59 Last Admin: 10/16/17 08:50 Dose: 1 mg Haloperidol Lactate (Haldol Inj) 1 mg IV.PUSH Q15M PRN PRN Reason: for severe agitation Sodium Chloride (Ns Inj) 1,000 mls @ 100 mls/hr IV.CONT .Q10H [facility] Last Admin: 10/16/17 03:27 Dose: 100 mls/hr Lisinopril (Prinivil) 20 mg PO DAILY [facility] Last Admin: 10/16/17 08:50 Dose: 20 mg Lorazepam (Ativan) 1 mg PO Q4H PRN PRN Reason: for CIWA 8-10 Lorazepam (Ativan) 2 mg PO Q2H PRN PRN Reason: for CIWA 11-14 Lorazepam (Ativan Inj) 2 mg IV.PUSH Q2H PRN PRN Reason: for CIWA 11-14 Lorazepam (Ativan Inj) 2 mg IV.PUSH Q1H PRN PRN Reason: for CIWA 15-20 Lorazepam (Ativan Inj) 1 mg IV.PUSH Q4H PRN PRN Reason: for CIWA 8-10 Lorazepam (Ativan Inj) 2 mg IV.PUSH Q15M PRN PRN Reason: for CIWA > 20 Multivitamins/Minerals (Theragran-M) 1 tab PO DAILY [facility] Stop: 10/21/17 08:59 Last Admin: 10/16/17 08:50 Dose: 1 tab Ondansetron HCl (Zofran Inj) 4 mg IV.PUSH Q6H PRN PRN Reason: NAUSEA OR VOMITING Pantoprazole Sodium (Protonix Inj) 40 mg IV.PUSH BID [facility] Last Admin: 10/16/17 08:49 Dose: 40 mg Sodium Chloride (Ns Flush) 2 ml IV.FLUSH PRN PRN PRN Reason: FLUSH AFTER USING IV ACCESS Sodium Chloride (Ns Flush) 2 ml IV.FLUSH BID [facility] Last Admin: 10/16/17 08:50 Dose: Not Given Sodium Chloride (Ns Flush) 2 ml IV.FLUSH PRN PRN PRN Reason: FLUSH AFTER USING IV ACCESS Thiamine HCl (Vitamin B1) 100 mg PO DAILY [facility] Last Admin: 10/16/17 08:50 Dose: 100 mg <Harmony Jacome M - Last Filed: 10/16/17 10:00> Active Medications: Active Medications Flumazenil (Romazecon Inj) 0.2 mg IV.PUSH Q1M PRN PRN Reason: OVERSEDATION Folic Acid (Folic Acid) 1 mg PO DAILY [facility] Stop: 10/21/17 08:59 Last Admin: 10/16/17 08:50 Dose: 1 mg Haloperidol Lactate (Haldol Inj) 1 mg IV.PUSH Q15M PRN PRN Reason: for severe agitation Sodium Chloride (Ns Inj) 1,000 mls @ 100 mls/hr IV.CONT .Q10H [facility] Last Admin: 10/16/17 03:27 Dose: 100 mls/hr Lisinopril (Prinivil) 20 mg PO DAILY [facility] Last Admin: 10/16/17 08:50 Dose: 20 mg Lorazepam (Ativan) 1 mg PO Q4H PRN PRN Reason: for CIWA 8-10 Lorazepam (Ativan) 2 mg PO Q2H PRN PRN Reason: for CIWA 11-14 Lorazepam (Ativan Inj) 2 mg IV.PUSH Q2H PRN PRN Reason: for CIWA 11-14 Lorazepam (Ativan Inj) 2 mg IV.PUSH Q1H PRN PRN Reason: for CIWA 15-20 Lorazepam (Ativan Inj) 1 mg IV.PUSH Q4H PRN PRN Reason: for CIWA 8-10 Lorazepam (Ativan Inj) 2 mg IV.PUSH Q15M PRN PRN Reason: for CIWA > 20 Miscellaneous Information ([facility] Nursing Information) 1 each OTHER UNSCH PRN PRN Reason: SEE LABEL COMMENTS Stop: 10/17/17 12:02 Multivitamins/Minerals (Theragran-M) 1 tab PO DAILY [facility] Stop: 10/21/17 08:59 Last Admin: 10/16/17 08:50 Dose: 1 tab Ondansetron HCl (Zofran Inj) 4 mg IV.PUSH Q6H PRN PRN Reason: NAUSEA OR VOMITING Pantoprazole Sodium (Protonix Inj) 40 mg IV.PUSH BID [facility] Last Admin: 10/16/17 08:49 Dose: 40 mg Sodium Chloride (Ns Flush) 2 ml IV.FLUSH PRN PRN PRN Reason: FLUSH AFTER USING IV ACCESS Sodium Chloride (Ns Flush) 2 ml IV.FLUSH BID [facility] Last Admin: 10/16/17 08:50 Dose: Not Given Sodium Chloride (Ns Flush) 2 ml IV.FLUSH PRN PRN PRN Reason: FLUSH AFTER USING IV ACCESS Thiamine HCl (Vitamin B1) 100 mg PO DAILY [facility] Last Admin: 10/16/17 08:50 Dose: 100 mg <Anderson Boyce A - Last Filed: 10/16/17 14:19> Allergies Allergy/AdvReac Type Severity Reaction Status Date / Time No Known Allergies Allergy Unverified 10/15/17 21:10 Home Medications Medication Instructions Recorded Confirmed Type lisinopril 20 mg PO DAILY 10/15/17 10/15/17 History Exam Vital signs: Vital Signs 10/15/17 16:13 10/15/17 20:59 10/15/17 22:36 Temperature 98.0 F 98.3 F Pulse Rate 110 H 102 H 87 Respiratory Rate 20 16 16 Blood Pressure 129/82 139/80 126/79 Pulse Oximetry 100 98 97 10/15/17 22:39 10/16/17 03:38 10/16/17 03:39 Temperature Pulse Rate 83 84 Respiratory Rate 16 16 Blood Pressure 115/85 115/85 Pulse Oximetry 96 97 98 10/16/17 07:00 10/16/17 09:00 Temperature 97.7 F Pulse Rate 79 81 Respiratory Rate 17 Blood Pressure 123/80 Pulse Oximetry 98 98 Intake & Output 10/15/17 10/16/17 10/16/17 18:59 06:59 18:59 Intake Total 120 / 120 100 / 100 Balance 120 / 120 100 / 100 Weight 70 kg Intake: Oral 120 / 120 100 / 100 Other: # Voids 2 - Constitutional average body habitus (Mild overweight) - Routine HEENT Exam Head: Present: normocephalic, atraumatic Eye: Present: EOMI ENT: Present: mucous membranes moist - Routine Neck Exam Present: supple - Routine Respiratory Exam Present: CTA bilaterally (Even, unlabored) - Routine Cardiovascular Exam Present: RRR - Routine Abdominal Exam Present: soft, tenderness (Right upper quadrant to light palpation) - Routine Skin Exam Present: intact <Harmony Jacome - Last Filed: 10/16/17 10:00> Vital signs: Vital Signs 10/15/17 16:13 10/15/17 20:59 10/15/17 22:36 Temperature 98.0 F 98.3 F Pulse Rate 110 H 102 H 87 Respiratory Rate 20 16 16 Blood Pressure 129/82 139/80 126/79 Pulse Oximetry 100 98 97 10/15/17 22:39 10/16/17 03:38 10/16/17 03:39 Temperature Pulse Rate 83 84 Respiratory Rate 16 16 Blood Pressure 115/85 115/85 Pulse Oximetry 96 97 98 10/16/17 07:00 10/16/17 09:00 10/16/17 11:00 Temperature 97.7 F 98.1 F Pulse Rate 79 81 83 Respiratory Rate 17 16 Blood Pressure 123/80 112/73 Pulse Oximetry 98 98 99 Intake & Output 10/15/17 10/16/17 10/16/17 18:59 06:59 18:59 Intake Total 120 / 120 1701 / 1701 Balance 120 / 120 1701 / 1701 Weight 70 kg Intake: IV 1601 / 1601 Thiamine Inj 100 MG In NS Inj 101 / 101 100 ML @ 100 mls/hr IV.SIG ONCE ONE Rx#:[id number] Oral 120 / 120 100 / 100 Other: # Voids 2 <Anderson Boyce - Last Filed: 10/16/17 14:19> Results - Labs CBC & Chem 7: 10/16/17 05:40 10/15/17 21:20 Labs: Laboratory Results - last 24 hr 10/15/17 10/15/17 10/15/17 21:20 21:20 21:20 WBC 4.0 RBC 3.91 L Hgb 13.1 Hct 37.9 MCV 97.0 MCH 33.6 MCHC 34.6 RDW 15.8 Plt Count 163 MPV 8.5 Neut % (Auto) 74.5 H Lymph % (Auto) 13.1 [place] % (Auto) 10.8 H Eos % (Auto) 0.2 Baso % (Auto) 1.4 Neut # (Auto) 3.0 Lymph # (Auto) 0.5 L [place] # (Auto) 0.4 Eos # (Auto) 0.0 Baso # (Auto) 0.1 WBC Differential . Differential Comment Auto diff final Sodium 131 L Potassium 3.7 Chloride 93 L Carbon Dioxide 21.9 Anion Gap 16 H BUN 24 H Creatinine 0.66 Estimated GFR Greater than 89 POC Glucose Random Glucose 122 H Calcium 9.9 Magnesium 2.1 Total Bilirubin 1.2 H AST 258 H ALT 207 H Alkaline Phosphatase 93 Troponin I Less than 0.02 L Total Protein 8.5 H Albumin 4.5 Lipase 356 Urine Color Urine Clarity Urine pH Ur Specific [place] Urine Protein Urine Glucose (UA) Urine Ketones Urine Occult Blood Urine Nitrate Urine Bilirubin Urine Urobilinogen Ur Leukocyte Esterase Urine RBC Urine WBC Amorphous Sediment Urine Bacteria Urine Mucus Micro UA Comment Urine Culture Comments Serum Alcohol 10/15/17 10/16/17 10/16/17 22:45 00:25 00:42 WBC RBC Hgb Hct MCV MCH MCHC RDW Plt Count MPV Neut % (Auto) Lymph % (Auto) [place] % (Auto) Eos % (Auto) Baso % (Auto) Neut # (Auto) Lymph # (Auto) [place] # (Auto) Eos # (Auto) Baso # (Auto) WBC Differential Differential Comment Sodium Potassium Chloride Carbon Dioxide Anion Gap BUN Creatinine Estimated GFR POC Glucose 81 Random Glucose Calcium Magnesium Total Bilirubin AST ALT Alkaline Phosphatase Troponin I Total Protein Albumin Lipase Urine Color Yellow Urine Clarity Hazy H Urine pH 8.0 Ur Specific [place] 1.010 Urine Protein Negative Urine Glucose (UA) Negative Urine Ketones 80 or greater Urine Occult Blood Negative Urine Nitrate Negative Urine Bilirubin Negative Urine Urobilinogen Less than 2 Ur Leukocyte Esterase Negative Urine RBC 1 Urine WBC 4 Amorphous Sediment Rare H Urine Bacteria Rare H Urine Mucus Few H Micro UA Comment Culture not ind Urine Culture Comments Culture not ind Serum Alcohol Less than 3 10/16/17 05:40 WBC RBC Hgb 12.4 Hct 36.3 MCV MCH MCHC RDW Plt Count MPV Neut % (Auto) Lymph % (Auto) [place] % (Auto) Eos % (Auto) Baso % (Auto) Neut # (Auto) Lymph # (Auto) [place] # (Auto) Eos # (Auto) Baso # (Auto) WBC Differential Differential Comment Sodium Potassium Chloride Carbon Dioxide Anion Gap BUN Creatinine Estimated GFR POC Glucose Random Glucose Calcium Magnesium Total Bilirubin AST ALT Alkaline Phosphatase Troponin I Total Protein Albumin Lipase Urine Color Urine Clarity Urine pH Ur Specific [place] Urine Protein Urine Glucose (UA) Urine Ketones Urine Occult Blood Urine Nitrate Urine Bilirubin Urine Urobilinogen Ur Leukocyte Esterase Urine RBC Urine WBC Amorphous Sediment Urine Bacteria Urine Mucus Micro UA Comment Urine Culture Comments Serum Alcohol - Imaging Impressions Abdomen/Pelvis CT 10/15/17 21:11 CONCLUSION: 1. No acute CT abnormality in the abdomen or pelvis. 2. Normal appendix. 3. Prominent hepatic steatosis. 4. 1.8 cm left adnexal cystic lesion likely reflecting an ovarian cyst. 5. Small hiatal hernia. Chest X-Ray 10/15/17 21:11 CONCLUSION: No acute cardiopulmonary process. <Harmony Jacome - Last Filed: 10/16/17 10:00> - Labs CBC & Chem 7: 10/16/17 05:40 10/15/17 21:20 Labs: Laboratory Results - last 24 hr 10/15/17 10/15/17 10/15/17 21:20 21:20 21:20 WBC 4.0 RBC 3.91 L Hgb 13.1 Hct 37.9 MCV 97.0 MCH 33.6 MCHC 34.6 RDW 15.8 Plt Count 163 MPV 8.5 Neut % (Auto) 74.5 H Lymph % (Auto) 13.1 [place] % (Auto) 10.8 H Eos % (Auto) 0.2 Baso % (Auto) 1.4 Neut # (Auto) 3.0 Lymph # (Auto) 0.5 L [place] # (Auto) 0.4 Eos # (Auto) 0.0 Baso # (Auto) 0.1 WBC Differential . Differential Comment Auto diff final Sodium 131 L Potassium 3.7 Chloride 93 L Carbon Dioxide 21.9 Anion Gap 16 H BUN 24 H Creatinine 0.66 Estimated GFR Greater than 89 POC Glucose Random Glucose 122 H Calcium 9.9 Magnesium 2.1 Total Bilirubin 1.2 H AST 258 H ALT 207 H Alkaline Phosphatase 93 Troponin I Less than 0.02 L Total Protein 8.5 H Albumin 4.5 Lipase 356 Urine Color Urine Clarity Urine pH Ur Specific [place] Urine Protein Urine Glucose (UA) Urine Ketones Urine Occult Blood Urine Nitrate Urine Bilirubin Urine Urobilinogen Ur Leukocyte Esterase Urine RBC Urine WBC Amorphous Sediment Urine Bacteria Urine Mucus Micro UA Comment Urine Culture Comments Serum Alcohol 10/15/17 10/16/17 10/16/17 22:45 00:25 00:42 WBC RBC Hgb Hct MCV MCH MCHC RDW Plt Count MPV Neut % (Auto) Lymph % (Auto) [place] % (Auto) Eos % (Auto) Baso % (Auto) Neut # (Auto) Lymph # (Auto) [place] # (Auto) Eos # (Auto) Baso # (Auto) WBC Differential Differential Comment Sodium Potassium Chloride Carbon Dioxide Anion Gap BUN Creatinine Estimated GFR POC Glucose 81 Random Glucose Calcium Magnesium Total Bilirubin AST ALT Alkaline Phosphatase Troponin I Total Protein Albumin Lipase Urine Color Yellow Urine Clarity Hazy H Urine pH 8.0 Ur Specific [place] 1.010 Urine Protein Negative Urine Glucose (UA) Negative Urine Ketones 80 or greater Urine Occult Blood Negative Urine Nitrate Negative Urine Bilirubin Negative Urine Urobilinogen Less than 2 Ur Leukocyte Esterase Negative Urine RBC 1 Urine WBC 4 Amorphous Sediment Rare H Urine Bacteria Rare H Urine Mucus Few H Micro UA Comment Culture not ind Urine Culture Comments Culture not ind Serum Alcohol Less than 3 10/16/17 05:40 WBC RBC Hgb 12.4 Hct 36.3 MCV MCH MCHC RDW Plt Count MPV Neut % (Auto) Lymph % (Auto) [place] % (Auto) Eos % (Auto) Baso % (Auto) Neut # (Auto) Lymph # (Auto) [place] # (Auto) Eos # (Auto) Baso # (Auto) WBC Differential Differential Comment Sodium Potassium Chloride Carbon Dioxide Anion Gap BUN Creatinine Estimated GFR POC Glucose Random Glucose Calcium Magnesium Total Bilirubin AST ALT Alkaline Phosphatase Troponin I Total Protein Albumin Lipase Urine Color Urine Clarity Urine pH Ur Specific [place] Urine Protein Urine Glucose (UA) Urine Ketones Urine Occult Blood Urine Nitrate Urine Bilirubin Urine Urobilinogen Ur Leukocyte Esterase Urine RBC Urine WBC Amorphous Sediment Urine Bacteria Urine Mucus Micro UA Comment Urine Culture Comments Serum Alcohol - Imaging Impressions Abdomen/Pelvis CT 10/15/17 21:11 CONCLUSION: 1. No acute CT abnormality in the abdomen or pelvis. 2. Normal appendix. 3. Prominent hepatic steatosis. 4. 1.8 cm left adnexal cystic lesion likely reflecting an ovarian cyst. 5. Small hiatal hernia. Chest X-Ray 10/15/17 21:11 CONCLUSION: No acute cardiopulmonary process. <Anderson Boyce - Last Filed: 10/16/17 14:19> Assessment and Plan (1) Alcohol withdrawal Status: Acute Code(s): F10.239 - Alcohol dependence with withdrawal, unspecified (2) Alcoholic hepatitis Status: Acute Code(s): K70.10 - Alcoholic hepatitis without ascites - Plan Nausea vomiting uncontrolled with hematemesis which started approximately 24 hours ago 3 different events. Patient states increased dizziness and decreased appetite and nausea over the past 2-3 days. Also notes increased stressors in her life and has regular chronic alcohol consumption at least 3 or 4 times a week may be more often over the past few weeks. Hemoglobin 12.4. Also complaining of left cramping same onset time and duration. Patient has history of 2 EGDs in the past but greater than 5 years ago. No history of colonoscopy. Right upper quadrant pain dull ache with some cramping off and on for the past 3 days. Again could be related to alcohol Current labs show bilirubin 1.2, AST 258, ALT 207, probable alcoholic hepatitis and with patient's hematemesis she may have varices which may need possible banding. EtOH consumption being monitored per attending with Ativan as needed Loose stools and on diarrhea for the past 2 days could be related to her upper GI bleeding. Positive family history of mom and colon cancer. Plan Diet n.p.o. for now Consent for EGD with possible banding EtOH abstinence PPI IV Folic acid Ativan monitoring for EtOH withdrawal per attending Anti-medics Liver workup labs initiated Further recommendations to follow after procedure Patient was seen per myself and Dr. Boyce, this note was written on his behalf <Harmony Jacome - Last Filed: 10/16/17 10:00> (1) Alcohol withdrawal Status: Acute Code(s): F10.239 - Alcohol dependence with withdrawal, unspecified (2) Alcoholic hepatitis Status: Acute Code(s): K70.10 - Alcoholic hepatitis without ascites - Attending Attestation Thank you for the consult. Patient consented for EGD today. Further recommendations pending endoscopy findings. Thank you for the consult. <Anderson Boyce A - Last Filed: 10/16/17 14:19> <Harmony Jacome - Last Filed: 10/16/17 10:00> (1) Alcohol withdrawal Qualifiers: Complication of substance-induced condition: uncomplicated Qualified Code(s) : F10.230 - Alcohol dependence with withdrawal, uncomplicated (2) Alcoholic hepatitis Qualifiers: Ascites presence: without ascites Qualified Code(s): K70.10 - Alcoholic hepatitis without ascites <Anderson Boyce A - Last Filed: 10/16/17 14:19> (1) Alcohol withdrawal Qualifiers: Complication of substance-induced condition: uncomplicated Qualified Code(s) : F10.230 - Alcohol dependence with withdrawal, uncomplicated (2) Alcoholic hepatitis Qualifiers: Ascites presence: without ascites Qualified Code(s): K70.10 - Alcoholic hepatitis without ascites
[2017-10-16] MEDS ORDERED: Lidocaine PF 1% Inj 5 ML Syringe INFILTRATN ONE (12:00)
--- NOTE | 2017-10-16 14:17 | GIPROC ---
[facility] [address]. [facility], [address] EGD PROCEDURE REPORT EXAM DATE: 10/16/2017 PATIENT NAME: Yumiko José MR #: [id number] BIRTHDATE: 1970 ATTENDING: Anderson Boyce MD ORDER #: [id number] INTERNET SOURCER: Hector Maria and Guevara Chacko STATUS: inpatient INDICATIONS: The patient is a 46 yr old female here for an EGD due to hematemesis PROCEDURE PERFORMED: EGD w/ biopsy MEDICATIONS: None and Per Anesthesia. TOPICAL ANESTHETIC: none CONSENT: The patient understands the risks and benefits of the procedure and understands that these risks include, but are not limited to: sedation, allergic reaction, infection, perforation and/or bleeding. Alternative means of evaluation and treatment include, among others: physical exam, x-rays, and/or surgical intervention. The patient elects to proceed with this endoscopic procedure. medical equipment was checked for proper function. Hand hygiene and appropriate measures for infection prevention was taken. After the risks, benefits and alternatives of the procedure were thoroughly explained, Informed consent was verified, confirmed and timeout was successfully executed by the treatment team. The patient was anesthetized with topical anesthesia and the Pentax [id number] endoscope was introduced through the mouth and advanced to the second portion of the duodenum. Retroflexion was performed and was normal The gastroscope was then slowly withdrawn and removed. ESOPHAGUS: There was LA Class A esophagitis noted. A non-bleeding Janel-Veronica tear was found in the distal esophagus. A 2 cm hiatal hernia was noted. STOMACH: Multiple medium sized small non-bleeding, round, shallow and clean-based ulcers were found in the gastric antrum. Biopsies were taken at edge of the ulcers and at the center of the ulcers. DUODENUM: Mild duodenal inflammation was found in the duodenal bulb. ADVERSE EVENTS: There were no complications. IMPRESSIONS: 1. There was LA Class A esophagitis noted 2. Janel-Veronica tear in the distal esophagus 3. 2 cm hiatal hernia 4. Multiple medium sized small ulcers were found in the gastric antrum; biopsies were taken 5. Duodenal inflammation was found in the duodenal bulb 6. Retroflexion was performed and was normal RECOMMENDATIONS: 1. Continue PPI 2. Await biopsy results. Biopsy results will not be ready for 7-10 days. If you don't hear from us in two weeks, call our office for biopsy results. PATIENT CONDITION: stable DISPOSITION: Observation REPEAT EXAM: NONE Anderson Boyce MD eSigned: Anderson Boyce MD 10/16/2017 2:16 PM cc: PATIENT NAME: Yumiko José MR#: [id number]
[2017-10-16 18:07] LABS: Hematocrit 36.4 % (35.0-46.0); Hemoglobin 12.8 gm/dL (11.6-15.3)
[2017-10-16 22:27] LABS: Hematocrit 35.4 % (35.0-46.0); Hemoglobin 12.2 gm/dL (11.6-15.3)
[2017-10-17 01:25] LABS: Hepatitis A IgM Antibody Nonreactive (Nonreactive); Hepatitits B Surface Antigen Nonreactive (Nonreactive)
[2017-10-17] MEDS: Sod Chloride 0.9% Inj 1,000 ML IV.CONT SCH ×2 (03:10→09:11)
[2017-10-17] MEDS: Multivitamin/Minerals Therapeutic Tablet PO SCH (09:10)
[2017-10-17] MEDS: Pantoprazole Inj 40 MG Vial IV.PUSH SCH (09:10)
[2017-10-17] MEDS: Lisinopril 20 MG Tablet PO SCH (09:10)
[2017-10-17] MEDS: Folic Acid 1 MG Tablet PO SCH (09:11)
[2017-10-17 10:37] LABS: Baso # (Auto) 0.1 th/mm3 (0.0-0.2); Baso % (Auto) 2.7 % (0.0-2.0); Eos # (Auto) 0.2 th/mm3 (0.0-0.4); Eos % (Auto) 5.7 % (0.0-4.0); Hematocrit 39.1 % (35.0-46.0); Hemoglobin 13.6 gm/dL (11.6-15.3); Lymph # (Auto) 0.8 th/mm3 (1.0-4.8); Lymph % (Auto) 27.5 % (9.0-44.0); Mean Corpuscular HGB Conc 34.9 % (32.0-36.0); Mean Corpuscular Hemoglobin 34.2 pg (27.0-34.0); Mean Platelet Volume 8.9 fL (7.0-11.0); Mono # (Auto) 0.4 th/mm3 (0.0-0.9); Mono % (Auto) 13.2 % (0.0-8.0); Neut # (Auto) 1.4 th/mm3 (1.8-7.7); Neut % (Auto) 50.9 % (16.0-70.0); Platelet Count 134 th/mm3 (150-450); Red Blood Count 3.99 mil/mm3 (4.00-5.30); Red Cell Distribution Width 15.5 % (11.6-17.2); White Blood Count 2.8 th/mm3 (4.0-11.0)
[2017-10-17 11:14] LABS: Alanine Aminotransferase 154 U/L (10-53); Albumin 3.8 g/dL (3.4-5.0); Alkaline Phosphatase 83 U/L (45-117); Anion Gap 11 meq/L (5-15); Aspartate Aminotransferase 156 U/L (15-37); Blood Urea Nitrogen 12 mg/dL (7-18); Calcium 8.8 mg/dL (8.5-10.1); Carbon Dioxide 22.1 meq/L (21.0-32.0); Chloride 105 meq/L (98-107); Glomerular Filtration Rate Greater Than 89 mL/min (>89); Glucose,Random 103 mg/dL (74-106); Potassium 3.2 meq/L (3.5-5.1); Sodium 138 meq/L (136-145); Total Protein 7.2 g/dL (6.4-8.2)
--- NOTE | 2017-10-17 13:05 | P.PN ---
Subjective Interval history: Follow up for hematemesis. Patient had EGD yesterday which showed esophagitis, Janel-Veronica tear, multiple nonbleeding gastric ulcers. The patient reports feeling better today. Denies any specific abdominal pains. No further nausea/ vomiting. She is tolerating oral intake. She wants to go home. She is also complains of some vaginal pruritus and white vaginal discharge. She states she is prone to yeast infections and is requesting medication. Physical Exam Vital signs: Vital Signs 10/16/17 14:28 10/16/17 15:47 10/16/17 19:55 Temperature 98 F 98.2 F Pulse Rate 94 H 72 83 Respiratory Rate 20 18 16 Blood Pressure 120/69 114/78 115/70 Pulse Oximetry 98 98 99 10/16/17 23:54 10/17/17 03:53 10/17/17 08:00 Temperature 98.4 F 97.5 F L Pulse Rate 69 71 65 Respiratory Rate 17 16 18 Blood Pressure 108/73 110/69 119/79 Pulse Oximetry 95 98 99 10/17/17 08:37 10/17/17 09:20 10/17/17 12:00 Temperature 97.4 F L Pulse Rate 65 68 Respiratory Rate 16 Blood Pressure 112/77 Pulse Oximetry 99 99 Intake & Output 10/16/17 10/17/17 10/17/17 18:59 06:59 18:59 Intake Total 2701 / 2701 1000 / 1000 1100 / 1100 Balance 2701 / 2701 1000 / 1000 1100 / 1100 Weight 70 kg Intake: IV 2601 / 2601 1000 / 1000 1000 / 1000 NS Inj 1,000 ML @ 100 mls/hr IV 1000 / 1000 1000 / 1000 1000 / 1000 .CONT .Q[facility] Rx#:[id number] Thiamine Inj 100 MG In NS Inj 101 / 101 100 ML @ 100 mls/hr IV.SIG ONCE ONE Rx#:[id number] Oral 100 / 100 100 / 100 Other: # Voids 2 2 Weight On Admission 70 kg Narrative: GENERAL: Well-nourished, well-developed middle aged female patient in [facility]. SKIN: Warm and dry. No rash. HEENT: Normocephalic. Atraumatic. Pupils equal and round. Mucous membranes pink and moist. CARDIOVASCULAR: Regular rate and rhythm. No murmur appreciated. RESPIRATORY: No accessory muscle use. Clear to auscultation. Breath sounds equal bilaterally. GASTROINTESTINAL: Abdomen soft, non-tender, nondistended. Normoactive bowel sounds x4. MUSCULOSKELETAL: No obvious deformities. Extremities without clubbing, cyanosis , or edema. NEUROLOGICAL: Awake and alert. No obvious cranial nerve deficits. Motor grossly within normal limits. Moving all extremities spontaneously. Normal speech. PSYCHIATRIC: Appropriate mood and affect; insight and judgment normal. Results - Labs CBC & Chem 7: 10/17/17 09:46 10/17/17 09:46 Laboratory Results - last 24 hr 10/16/17 10/16/17 10/16/17 17:45 17:45 17:45 WBC RBC Hgb 12.8 Hct 36.4 MCV MCH MCHC RDW Plt Count MPV Neut % (Auto) Lymph % (Auto) [place] % (Auto) Eos % (Auto) Baso % (Auto) Neut # (Auto) Lymph # (Auto) [place] # (Auto) Eos # (Auto) Baso # (Auto) WBC Differential Differential Comment Sodium Potassium Chloride Carbon Dioxide Anion Gap BUN Creatinine Estimated GFR Random Glucose Calcium Total Bilirubin AST ALT Alkaline Phosphatase Total Protein Albumin Tumor Marker AFP 3.3 Hepatitis A IgM Ab Nonreactive Hep Bs Antigen Nonreactive Hep B Core IgM Ab Nonreactive Hep C IgG Ab Nonreactive 10/16/17 10/17/17 10/17/17 22:06 09:46 09:46 WBC 2.8 L RBC 3.99 L Hgb 12.2 13.6 Hct 35.4 39.1 MCV 98.0 MCH 34.2 H MCHC 34.9 RDW 15.5 Plt Count 134 L MPV 8.9 Neut % (Auto) 50.9 Lymph % (Auto) 27.5 Leslie % (Auto) 13.2 H Eos % (Auto) 5.7 H Baso % (Auto) 2.7 H Neut # (Auto) 1.4 L Lymph # (Auto) 0.8 L Leslie # (Auto) 0.4 Eos # (Auto) 0.2 Baso # (Auto) 0.1 WBC Differential . Differential Comment Auto diff final Sodium 138 Potassium 3.2 L Chloride 105 D Carbon Dioxide 22.1 Anion Gap 11 BUN 12 Creatinine 0.59 Estimated GFR Greater than 89 Random Glucose 103 Calcium 8.8 D Total Bilirubin 1.2 H AST 156 H ALT 154 H Alkaline Phosphatase 83 Total Protein 7.2 D Albumin 3.8 D Tumor Marker AFP Hepatitis A IgM Ab Hep Bs Antigen Hep B Core IgM Ab Hep C IgG Ab - Procedures 10/16/17 - EGD by Dr. Boyce showed: 1. There was LA Class A esophagitis noted 2. Janel-Veronica tear in the distal esophagus 3. 2 cm hiatal hernia 4. Multiple medium sized small ulcers were found in the gastric antrum; biopsies were taken 5. Duodenal inflammation was found in the duodenal bulb 6. Retroflexion was performed and was normal Assessment and Plan - Plan 46-year-old female with a past medical history significant for anxiety, hypertension, alcohol abuse presents the emergency department for the evaluation of hematemesis. Hematemesis: acute. With ongoing alcohol use. -Serial Hgb stable, 13.1 --> 12.4 --> 12.8 --> 12.2 --> 13.6 -Continue on IV Protonix 40mg bid -Consulted Gastroenterology -EGD 10/16 showed esophagitis, nonbleeding Janel-Veronica tear distal esophagus ; 2cm hiatal hernia, multiple medium sized nonbleeding gastric ulcers -Diet advanced, patient tolerating well Alcohol Abuse: patient admits to drinking more recently, going through divorce -continue thiamine/folate/MV -CIWA protocol -monitor for withdrawal Hypertension: chronic -continue patient's lisinopril 20mg daily Hypokalemia: acute, secondary to recent vomiting and poor oral intake -given po KCl replacement Vaginal Candidiasis: acute -give diflucan 150mg po x1 now DVT Prophylaxis: patient is ambulatory; avoid chemoprophylaxis with hematemesis Discharge Planning: Ok to discharge when cleared by GI. 1530hrs: Patient cleared for discharge by GI, recommends outpatient f/up in 2 weeks. Patient tolerating oral intake, stable for discharge. Discharge patient to home Condition on discharge: Stable Heart Healthy/Soft diet as tolerated Ad Kirt[facility] activity Rx written: Protonix 40mg po bid Follow-up with primary care physician and gastroenterology in 2 weeks
[2017-10-17] MEDS ORDERED: Fluconazole 100 MG Tablet PO ONE (14:00)
--- NOTE | 2017-10-17 16:38 | P.PNGI ---
Subjective Interval history: Patient is resting in the bed but alert oriented and talkative states she feels much better Patient denies any current epigastric or gastric pain no obvious bleeding No nausea no vomiting tolerating her food well Current hemoglobin <Harmony Jacome - Last Filed: 10/17/17 16:30> Physical Exam Vital signs: Vital Signs 10/16/17 19:55 10/16/17 23:54 10/17/17 03:53 Temperature 98.4 F Pulse Rate 83 69 71 Respiratory Rate 16 17 16 Blood Pressure 115/70 108/73 110/69 Pulse Oximetry 99 95 98 10/17/17 08:00 10/17/17 08:37 10/17/17 09:20 Temperature 97.5 F L Pulse Rate 65 65 Respiratory Rate 18 Blood Pressure 119/79 Pulse Oximetry 99 99 10/17/17 12:00 Temperature 97.4 F L Pulse Rate 68 Respiratory Rate 16 Blood Pressure 112/77 Pulse Oximetry 99 Intake & Output 10/16/17 10/17/17 10/17/17 18:59 06:59 18:59 Intake Total 2701 / 2701 1000 / 1000 1100 / 1100 Balance 2701 / 2701 1000 / 1000 1100 / 1100 Weight 70 kg Intake: IV 2601 / 2601 1000 / 1000 1000 / 1000 NS Inj 1,000 ML @ 100 mls/hr IV 1000 / 1000 1000 / 1000 1000 / 1000 .CONT .Q10H [facility] Rx#:[id number] Thiamine Inj 100 MG In NS Inj 101 / 101 100 ML @ 100 mls/hr IV.SIG ONCE ONE Rx#:[id number] Oral 100 / 100 100 / 100 Other: # Voids 2 2 Weight On Admission 70 kg - Constitutional no acute distress - Routine HEENT Exam Head: Present: normocephalic, atraumatic Eye: Present: EOMI ENT: Present: mucous membranes moist - Routine Neck Exam Present: supple - Routine Respiratory Exam Present: CTA bilaterally - Routine Cardiovascular Exam Present: RRR - Routine Abdominal Exam Present: soft, normoactive bowel sounds, tenderness (No noted tenderness at rest ), guarding - Routine Skin Exam Present: intact - Routine Neurological Exam Present: alert - Detailed Neurological Exam: Coma Scale Eye Opening: Spontaneous Verbal Response: Oriented - Routine Psychiatric Exam Present: normal affect <Harmony Jacome - Last Filed: 10/17/17 16:30> Vital signs: Vital Signs 10/16/17 23:54 10/17/17 03:53 10/17/17 08:00 Temperature 98.4 F 97.5 F L Pulse Rate 69 71 65 Respiratory Rate 17 16 18 Blood Pressure 108/73 110/69 119/79 Pulse Oximetry 95 98 99 10/17/17 08:37 10/17/17 09:20 10/17/17 12:00 Temperature 97.4 F L Pulse Rate 65 68 Respiratory Rate 16 Blood Pressure 112/77 Pulse Oximetry 99 99 Intake & Output 10/17/17 10/17/17 10/18/17 06:59 18:59 06:59 Intake Total 1000 / 1000 1100 / 1100 Balance 1000 / 1000 1100 / 1100 Intake: IV 1000 / 1000 1000 / 1000 NS Inj 1,000 ML @ 100 mls/hr IV 1000 / 1000 1000 / 1000 .CONT .Q10H [facility] Rx#:[id number] Oral 100 / 100 Other: # Voids 2 2 <Anderson Boyce A - Last Filed: 10/17/17 21:14> Results - Labs CBC & Chem 7: 10/17/17 09:46 10/17/17 09:46 Laboratory Results - last 24 hr 10/16/17 10/16/17 10/16/17 17:45 17:45 17:45 WBC RBC Hgb 12.8 Hct 36.4 MCV MCH MCHC RDW Plt Count MPV Neut % (Auto) Lymph % (Auto) [place] % (Auto) Eos % (Auto) Baso % (Auto) Neut # (Auto) Lymph # (Auto) [place] # (Auto) Eos # (Auto) Baso # (Auto) WBC Differential Differential Comment Sodium Potassium Chloride Carbon Dioxide Anion Gap BUN Creatinine Estimated GFR Random Glucose Calcium Total Bilirubin AST ALT Alkaline Phosphatase Total Protein Albumin Tumor Marker AFP 3.3 Hepatitis A IgM Ab Nonreactive Hep Bs Antigen Nonreactive Hep B Core IgM Ab Nonreactive Hep C IgG Ab Nonreactive 10/16/17 10/17/17 10/17/17 22:06 09:46 09:46 WBC 2.8 L RBC 3.99 L Hgb 12.2 13.6 Hct 35.4 39.1 MCV 98.0 MCH 34.2 H MCHC 34.9 RDW 15.5 Plt Count 134 L MPV 8.9 Neut % (Auto) 50.9 Lymph % (Auto) 27.5 [place] % (Auto) 13.2 H Eos % (Auto) 5.7 H Baso % (Auto) 2.7 H Neut # (Auto) 1.4 L Lymph # (Auto) 0.8 L [place] # (Auto) 0.4 Eos # (Auto) 0.2 Baso # (Auto) 0.1 WBC Differential . Differential Comment Auto diff final Sodium 138 Potassium 3.2 L Chloride 105 D Carbon Dioxide 22.1 Anion Gap 11 BUN 12 Creatinine 0.59 Estimated GFR Greater than 89 Random Glucose 103 Calcium 8.8 D Total Bilirubin 1.2 H AST 156 H ALT 154 H Alkaline Phosphatase 83 Total Protein 7.2 D Albumin 3.8 D Tumor Marker AFP Hepatitis A IgM Ab Hep Bs Antigen Hep B Core IgM Ab Hep C IgG Ab - Procedures 10/16/17 - EGD by Dr. Boyce showed: 1. There was LA Class A esophagitis noted 2. Janel-Veronica tear in the distal esophagus 3. 2 cm hiatal hernia 4. Multiple medium sized small ulcers were found in the gastric antrum; biopsies were taken 5. Duodenal inflammation was found in the duodenal bulb 6. Retroflexion was performed and was normal <Harmony Jacome - Last Filed: 10/17/17 16:30> - Labs CBC & Chem 7: 10/17/17 09:46 10/17/17 09:46 Laboratory Results - last 24 hr 10/16/17 10/16/17 10/17/17 17:45 22:06 09:46 WBC 2.8 L RBC 3.99 L Hgb 12.2 13.6 Hct 35.4 39.1 MCV 98.0 MCH 34.2 H MCHC 34.9 RDW 15.5 Plt Count 134 L MPV 8.9 Neut % (Auto) 50.9 Lymph % (Auto) 27.5 [place] % (Auto) 13.2 H Eos % (Auto) 5.7 H Baso % (Auto) 2.7 H Neut # (Auto) 1.4 L Lymph # (Auto) 0.8 L [place] # (Auto) 0.4 Eos # (Auto) 0.2 Baso # (Auto) 0.1 WBC Differential . Differential Comment Auto diff final Sodium Potassium Chloride Carbon Dioxide Anion Gap BUN Creatinine Estimated GFR Random Glucose Calcium Total Bilirubin AST ALT Alkaline Phosphatase Total Protein Albumin Hepatitis A IgM Ab Nonreactive Hep Bs Antigen Nonreactive Hep B Core IgM Ab Nonreactive Hep C IgG Ab Nonreactive 10/17/17 09:46 WBC RBC Hgb Hct MCV MCH MCHC RDW Plt Count MPV Neut % (Auto) Lymph % (Auto) [place] % (Auto) Eos % (Auto) Baso % (Auto) Neut # (Auto) Lymph # (Auto) [place] # (Auto) Eos # (Auto) Baso # (Auto) WBC Differential Differential Comment Sodium 138 Potassium 3.2 L Chloride 105 D Carbon Dioxide 22.1 Anion Gap 11 BUN 12 Creatinine 0.59 Estimated GFR Greater than 89 Random Glucose 103 Calcium 8.8 D Total Bilirubin 1.2 H AST 156 H ALT 154 H Alkaline Phosphatase 83 Total Protein 7.2 D Albumin 3.8 D Hepatitis A IgM Ab Hep Bs Antigen Hep B Core IgM Ab Hep C IgG Ab <Anderson Boyce A - Last Filed: 10/17/17 21:14> Assessment and Plan (1) Alcohol withdrawal Status: Acute Code(s): F10.239 - Alcohol dependence with withdrawal, unspecified (2) Alcoholic hepatitis Status: Acute Code(s): K70.10 - Alcoholic hepatitis without ascites - Plan Nausea vomiting uncontrolled with hematemesis which started approximately 24 hours ago 3 different events. Patient states increased dizziness and decreased appetite and nausea over the past 2-3 days. Also notes increased stressors in her life and has regular chronic alcohol consumption at least 3 or 4 times a week may be more often over the past few weeks. Hemoglobin 12.4. Also complaining of left cramping same onset time and duration. Patient has history of 2 EGDs in the past but greater than 5 years ago. No history of colonoscopy. Right upper quadrant pain dull ache with some cramping off and on for the past 3 days. Again could be related to alcohol Current labs show bilirubin 1.2, AST 258, ALT 207, probable alcoholic hepatitis and with patient's hematemesis she may have varices which may need possible banding. EtOH consumption being monitored per attending with Ativan as needed Loose stools and on diarrhea for the past 2 days could be related to her upper GI bleeding. Positive family history of mom and colon cancer. 10/17/2017. Patient is resting in her room and feels much better today without any symptoms of nausea vomiting or gastric or epigastric pain patient is taken to meals without any problems. Discussed with her discharge planning with fiber diet and probiotics, heart healthy diet without any greasy or spicy foods and monitor her intake of fast foods. Also discussed follow-up in the GI office in 2-4 weeks to review any further biopsies and symptom management and liver workup labs. Liver workup labs pending except for hepatitis panel nonreactive alpha-fetoprotein 3.3. EGD performed on 10/16/2017 with results showing Janel-Veronica tear, LA a esophagitis, gastric ulcers, 2 cm hiatal hernia, and duodenal inflammation. Discussed and supported patient for the need to take care of herself and avoid any alcohol. She agreed and stated she was going to practice abstinence. GI will sign off please call if needed Plan Diet as tolerated recommend heart healthy without any greasy spicy foods Antireflux program, avoid NSAIDs, chew food slowly and do not eat late at night , hydration when swallowing small bites EtOH abstinence PPI Folic acid Patient was seen per myself and Dr. Boyce, this note was written on his behalf <Harmony Jacome - Last Filed: 10/17/17 16:30> (1) Alcohol withdrawal Status: Acute Code(s): F10.239 - Alcohol dependence with withdrawal, unspecified (2) Alcoholic hepatitis Status: Acute Code(s): K70.10 - Alcoholic hepatitis without ascites - Attending Attestation Plan as above, nothing to add from GI point of view at this time. Please notify us if needed again. <Anderson Boyce - Last Filed: 10/17/17 21:14> <Harmony Jacome - Last Filed: 10/17/17 16:30> (1) Alcohol withdrawal Qualifiers: Complication of substance-induced condition: uncomplicated Qualified Code(s) : F10.230 - Alcohol dependence with withdrawal, uncomplicated (2) Alcoholic hepatitis Qualifiers: Ascites presence: without ascites Qualified Code(s): K70.10 - Alcoholic hepatitis without ascites <Anderson Boyce - Last Filed: 10/17/17 21:14> (1) Alcohol withdrawal Qualifiers: Complication of substance-induced condition: uncomplicated Qualified Code(s) : F10.230 - Alcohol dependence with withdrawal, uncomplicated (2) Alcoholic hepatitis Qualifiers: Ascites presence: without ascites Qualified Code(s): K70.10 - Alcoholic hepatitis without ascites
[2017-10-18 13:44] LABS: Smooth Muscle Total Auto Abs Negative (Negative)
[2017-10-19 15:54] LABS: Ceruloplasmin 18 mg/dL (18-53)
[2017-10-20 03:51] LABS: DS DNA Ab (Crithidia) NEGATIVE (NEGATIVE)
== END 2017-10-17 17:22 | disposition home or self-care (01) ==
LOC: NEPHCDU 15:28 → NEDA 15:28 → NEPC 15:28 → NEDH 10-16 06:06 → NEPHCDU 10-16 14:52
PROVIDERS: ADMIT Family Medicine; ATTEND Family Medicine